=== PATIENT | male | born 1995 | race Caucasian/White ===

== ENCOUNTER 2018-05-12 17:20 | Emergency (ER) | payer BC ==
[~2018-05-12] VITALS: Ht 180.3 cm; Wt 75.0 kg
[2018-05-12] MEDS ORDERED: KETOROLAC 30MG/ML VIAL IV STA (21:38)
[2018-05-12] MEDS ORDERED: SODIUM CHLORIDE 0.9% 1,000 ML IV ONE ×2 (21:38→22:28)
[2018-05-12] MEDS ORDERED: ONDANSETRON HCL 4MG/2ML INJ IV STA (21:38)
[2018-05-12 22:08] LABS: HEMATOCRIT. 42.6 % (42.0-52.0); HEMOGLOBIN. 14.7 g/dL (14.0-18.0); MEAN CORPUSCULAR HEMOGLOBIN 31.6 pg (28.0-32.0); MEAN CORPUSCULAR VOLUME 91.4 fL (80.0-94.0); MEAN PLATELET VOLUME 9.2 fl (7.4-10.4); PLATELET 207 x1000/uL (130-400); RED BLOOD CELL COUNT 4.66 mill/uL (4.7-6.1); RED CELL DISTRIBUTION WIDTH 12.3 % (11.6-14.6)
[2018-05-12 22:14] LABS: CHLORIDE 104 mEq/L (98-107)
[2018-05-12 22:35] LABS: PLATELET ESTIMATE NORMAL
[2018-05-12 23:49] LABS: CLARITY URINE CLEAR (CLEAR); COLOR URINE YELLOW (YELLOW); KETONES URINE 4+ (NEGATIVE); LEUKOCYTE ESTERASE URINE TRACE (NEGATIVE); NITRITE URINE NEGATIVE (NEGATIVE); OCCULT BLOOD URINE NEGATIVE (NEGATIVE); PROTEIN URINE TRACE (NEGATIVE); SPECIFIC GRAVITY URINE 1.019 (1.005-1.030)
[2018-05-13 00:21] VITALS: BP 103/47
[2018-05-13] MEDS ORDERED: ONDANSETRON HCL 4MG/2ML INJ IV ONE (00:30)
== END 2018-05-13 00:51 | disposition home or self-care (01) ==
LOC: ER 17:20
DX: R11.2 Nausea with vomiting, unspecified (principal); R19.7 Diarrhea, unspecified; R50.9 Fever, unspecified; R00.0 Tachycardia, unspecified
CPT/HCPCS: 36415; 80053; 81003; 83690; 85025; 87804; 96361; 96374; 96375; 96376; 99284; J1885; J2405; J7030; Z7610